=== PATIENT | female | born 1970 | race Caucasian/White ===

== ENCOUNTER 2020-04-09 15:10 | Outpatient (CLI) | payer OTHER ==
--- NOTE | 2020-04-09 17:55 | RAD ---
CERVICAL SPINE: 04/09/20 Three views. HISTORY: Disability evaluation. Anterior fusion procedures noted. Anterior plate and screws are seen transfixing C3, C4, C5, C6 and C 7. There are no screws at the C6 level. There is interbody fusion at all of these levels. Posterior alig nment is preserved. There is evidence of mild disc space narrowing at C7-T1 with mild degenerative ch glenda. The C2-C3 disc space is preserved. Mild spondylosis seen at the C5 and C6 level which may encro ach on the anterior thecal sac. IMPRESSION: Postop anterior fusion procedure as described above. POS: AGW
== END 2020-04-09 15:11 | disposition home or self-care (01) ==
LOC: BICRAD 15:10
PROVIDERS: ATTEND Internal Medicine
DX: Z02.71 Encounter for disability determination (principal); Z98.1 Arthrodesis status
CPT/HCPCS: 72040